=== PATIENT | male | born 1970 | race Caucasian/White ===

== ENCOUNTER 2023-07-30 11:06 | Emergency (ER) | payer BC, SELFPAY ==
--- NOTE | 2023-07-30 12:03 | ED.GENMED ---
History of Present Illness
General
Chief Complaint: Skin Surface Trauma
Source: patient
Time Seen by Provider: 07/30/23 11:41
Travel History
Have you had any contact with someone who has COVID-19?: No
Do you have any symptoms of coronavirus? Fever > 100 degrees, chills, cough, shortness of breath, sore throat, loss of taste or smell, muscle aches, or headache?: No
History of Present Illness
History of Present Illness:
52-year-old male with past medical history of hypertension presenting emergency department for evaluation after he accidentally punctured the interdigital webbing space on his hand with a drill bit. Patient is right-hand dominant, tetanus vaccine
is up-to-date and no other injuries were sustained. Patient states bleeding has subsided since arriving to the emergency department.
Past History
Past History
ED Past Medical History: HTN
ED Past Surgical History: None
Social History
Tobacco: Non-smoker
Alcohol: None
Drug: None
Personal:
Living: with family
Employment: Employed
Family History
Family History: Negative Diabetes, Hypertension or CAD
Review of Systems
Review of Systems
All Other Systems: ROS reviewed and negative except as documented in HPI and ROS
Phy Exam
Physical Exam
Physical Exam:
GENERAL: Alert , in no apparent distress
EYE: conjunctiva clear
Head: Normocephalic atraumatic
NECK: Supple,
ENT: mmm.
LUNGS: no acute respiratory distress
NEUROLOGICAL: Alert and oriented
SKIN: Warm and dry, 2 mm puncture wound over the left digital webbing space without any active bleeding
MUSCULOSKELETAL: well perfused. Full range of motion of all digits. Easily palpable radial pulse. Cap refill less than 2 seconds and sensation is grossly intact to light touch to all digits.
PSYCH: Normal and appropriate interaction.
Scores
Heart Failure Risk
Heart Failure Risk Score: Not Applicable
Heart Score for Chest Pain Patients
STEMI patient?: Not applicable
Withdrawal Assessment of Alcohol
Withdrawal Assessment Completed?: Not applicable
Course
Vital Signs
Initial and Last Documented VS:
Initial Vital Signs
Temp
98.5 F
07/30/23 11:23
Last Documented Vital Signs
Temp
98.5 F
07/30/23 11:23
MDM/Problems Addressed
MDM/Problems Addressed:
52-year-old male present emergency department for evaluation after he excellently used a drill bit that punctured his left hand. Tetanus vaccine is up-to-date and no other injuries were sustained. Patient declines any imaging stating he is not
having any pain and has full range of motion of all digits and wrist without any difficulty. I do not feel patient needs any antibiotics at this time but will irrigate the wound and dressed the wound and place topical antibiotics over it. Patient
advised on wound care. Aware of return precautions. Otherwise stable for discharge home.
*Pulse Oximetry
Patient hypoxic: no
*Critical Care Note
Total Time (30-74mins, 75-104mins- exclusive of procedures): Not Applicable
ED Attending Note
-
Portions of this chart may have been created with voice recognition software.� Occasional wrong word or��sound alike� substitutions may have occurred due to the inherent limitations of voice recognition software.
Discharge Plan
Departure
Patient Disposition: Home (Routine Discharge)
Date of Disposition: 07/30/23
Time of Disposition: 12:03
Patient with high blood pressure during this ER visit?: No
Discharge Problem:
Puncture wound of hand, left
Instructions: Wound Care (DC)
Prescriptions:
No Action
ibuprofen [Advil] 200 MG tablet
200 mg PO PRN PRN (Reason: pain/fever)
amlodipine 10 MG tablet
10 mg PO HS Qty: 14 0RF
fluticasone propionate 1 SPRAY spray,suspension
1 spray intranasal DAILY
cannabidiol [Epidiolex] 100 MG/ML solution
100 mg PO PRN PRN (Reason: sleep)
Referrals:
Evans Stephenson MD [Family Provider] -
Interventions
Interventions:
*Risk Screen - Suicide Last Done: 07/30/23 11:23
*General Assessment Last Done: 07/30/23 11:23
*Neglect/Abuse Screening Last Done: 07/30/23 11:23
ED- Fall Risk Assessment Last Done: 07/30/23 12:13
*ED COVID-19 Vaccine History Last Done: 07/30/23 11:23
*Nursing Disposition Last Done: 07/30/23 12:15
ED-Skin Assessment Last Done: 07/30/23 12:13
Discharge Date and Time
Discharge Date/Time: 07/30/23 12:15
== END 2023-07-30 12:15 | disposition home or self-care (01) ==
LOC: EMR 11:06
PROVIDERS: EMERGENCY PHYSICIAN Emergency Medicine; FAMILY PHYSICIAN Family Medicine
DX: S61.432A Puncture wound without foreign body of left hand, initial encounter (principal); W29.8XXA Contact with other powered hand tools and household machinery, initial encounter; I10 Essential (primary) hypertension
CPT/HCPCS: 99282

== ENCOUNTER → 2023-08-15 08:24 | Outpatient (REF) | payer BC, SELFPAY | LOC: RAD 08:24 | PROVIDERS: ATTENDING PHYSICIAN Physician Assistant Medical | DX: M54.16 Radiculopathy, lumbar region (principal); M51.26 Other intervertebral disc displacement, lumbar region | CPT/HCPCS: 72110 ==

== ENCOUNTER 2024-06-10 06:16 | Day surgery (SDC) | payer OTHER, SELFPAY | END 2024-06-10 10:05 | disposition home or self-care (01) | LOC: GI 06:16 | PROVIDERS: ATTENDING PHYSICIAN Specialist | DX: Z12.11 Encounter for screening for malignant neoplasm of colon (principal); K57.30 Diverticulosis of large intestine without perforation or abscess without bleeding; K63.5 Polyp of colon; Z80.0 Family history of malignant neoplasm of digestive organs; Z86.0101 Personal history of adenomatous and serrated colon polyps | CPT/HCPCS: 45385; 88305 ==